=== PATIENT | male | born 1955 | race Caucasian/White ===

== ENCOUNTER 2023-02-11 14:24 | Emergency (ER) | payer OTHER ==
[~2023-02-11] VITALS: Ht 165.1 cm; Wt 77.1 kg
[2023-02-11 14:49] VITALS: BP_SYST 148; PULSE 80; RESP 16; TEMP 98.5; O2SAT 95
[2023-02-11] MEDS ORDERED: KETOROLAC TROMETHAMINE 30 MG VIAL IM ONE (15:15)
[2023-02-11 17:11] LABS: BASOPHILS # (AUTO) 0.1 K/uL (0.0-0.2); BASOPHILS % (AUTO) 0.4 % (0.0-2.0); EOSINOPHILS % (AUTO) 0.1 % (0.0-4.0); HEMATOCRIT 40.3 % (36-54); HEMOGLOBIN 13.2 g/dL (14.0-18.0); LYMPHOCYTES # (AUTO) 1.8 K/uL (1.0-5.5); LYMPHOCYTES % (AUTO) 11.9 % (20.5-51.5); MEAN CORPUSCULAR HEMOGLOBIN 29 pg (27-31); MEAN CORPUSCULAR HGB CONC 33 % (32-36); MEAN CORPUSCULAR VOLUME 88 fL (79.0-98.0); MONOCYTES # (AUTO) 1.8 K/uL (0.0-1.0); MONOCYTES % (AUTO) 12.4 % (1.7-9.3); NEUTROPHILS # (AUTO) 11.1 K/uL (1.8-7.7); NEUTROPHILS % (AUTO) 75.2 % (40.0-70.0); PLATELET COUNT (AUTO) 248 K/uL (130-430); RED BLOOD CELL COUNT(AUTO) 4.56 MIL/uL (4.2-6.2); RED CELL DISTRIBUTION WIDTH 13.3 % (9.0-15.0); WHITE BLOOD COUNT (AUTO) 14.8 K/uL (4.8-10.8)
[2023-02-11 17:23] LABS: ERYTHROCYTE SEDIMENTATION RATE 68 MM/HR (0-15)
[2023-02-11 17:29] LABS: ANION GAP 11 (5-15); CALCIUM 9.1 mg/dL (8.4-11.0); CARBON DIOXIDE 25 mmol/L (23-29); CHLORIDE 99 mmol/L (98-107); CREATININE 1.35 mg/dL (0.55-1.30); GFR AFRICAN AMERICAN 68 mL/min (>90); GLUCOSE 125 mg/dL (74-106); POTASSIUM 3.4 mmol/L (3.5-5.1); SODIUM SERUM 135 mmol/L (136-145); UREA NITROGEN, BLOOD 20 mg/dL (8-21)
[2023-02-11 17:40] LABS: GFR NON AFRICAN-AMERICAN 56 mL/min (>90)
[2023-02-11 18:03] LABS: URIC ACID 7.5 mg/dL (2.4-7.0)
[2023-02-11] MEDS ORDERED: predniSONE 20 MG TABLET PO ONE (18:15)
[2023-02-11] MEDS ORDERED: AMOXICILLIN/POTASSIUM CLAV 875 MG TABLET PO ONE (18:15)
[2023-02-11] MEDS ORDERED: MED4 PO (18:30)
[2023-02-11] MEDS ORDERED: DOXY100C5 PO (18:30)
[2023-02-11 18:50] VITALS: BP_SYST 137; PULSE 78; RESP 16; TEMP 98.4; O2SAT 95
== END 2023-02-11 18:58 | disposition home or self-care (01) ==
LOC: SED 14:24
DX: M10.9 Gout, unspecified (principal); M25.432 Effusion, left wrist; I10 Essential (primary) hypertension; Z79.899 Other long term (current) drug therapy
CPT/HCPCS: 99283; 80048; 84550; 85025; 85651; 87040; 36415; 96372; 82397; J7512; J1885